=== PATIENT | female | born 1985 | race Caucasian/White ===

== ENCOUNTER 2017-01-10 16:44 | Emergency (ER) | payer SELFPAY ==
[~2017-01-10] VITALS: Ht 162.6 cm; Wt 80.9 kg
[~2017-01-10 16:44] MED LIST: Cipro PO; ENDOCET 5-3251 EACH PO; MOTRIN600 MG PO; Motrin PO; OXYCONTIN40 MG PO; OxyCONTIN PO; PREMARIN0.9 MG PO
[2017-01-10] MEDS ORDERED: CLARITIN10 M3 PO (18:25)
[2017-01-10] MEDS ORDERED: MOTRIN800 MG PO (18:25)
[2017-01-10] MEDS ORDERED: FLONASE16 G1 BOTH NARES (18:25)
[2017-01-10] MEDS ORDERED: TESSALON PERLE100 MG PO (18:26)
[2017-01-10 18:55] VITALS: BP 143/89
== END 2017-01-10 18:55 | disposition home or self-care (01) ==
LOC: EME 16:44
DX: J02.8 Acute pharyngitis due to other specified organisms (principal); B97.89 Other viral agents as the cause of diseases classified elsewhere; J30.9 Allergic rhinitis, unspecified
CPT/HCPCS: 87651 90; 99281; 99283